=== PATIENT | female | born 1965 | race Caucasian/White ===

== ENCOUNTER 2017-07-08 16:23 | Emergency (ER) | payer MEDICARE, OTHER, MEDICAID ==
[~2017-07-08] VITALS: Ht 165.1 cm; Wt 40.5 kg
[~2017-07-08 16:23] MED LIST: ADV50100 IH; ALBU8.5H8 INH; ASPI-611 PO; ATOR40TA PO; FLUT16SP10; GABA300S PO; HYDR-565 PO; IBUP-1984 PO; LEVO175T2 PO; LORA0.5T PO; METO5TAB98 PO; MONT10TA24 PO; ONDA4TAB9 PO; PANT40SU2 PO
[2017-07-08 16:33] VITALS: BP 154/89
[2017-07-08] MEDS ORDERED: fentaNYL/PF 50MCG/1 ML 2ML syringe IM ONE (16:45)
[2017-07-08] MEDS ORDERED: ondansetron/PF 4mg/2ml inj IM ONE (17:00)
== END 2017-07-08 18:09 | disposition home or self-care (01) ==
LOC: ER 16:24
DX: K94.23 Gastrostomy malfunction (principal); E78.00 Pure hypercholesterolemia, unspecified; K21.9 Gastro-esophageal reflux disease without esophagitis; G89.29 Other chronic pain
CPT/HCPCS: 43760; 96372; 99284; B4088; J2405; J3010

== ENCOUNTER 2017-10-11 14:17 | Emergency (ER) | payer MEDICARE, MEDICAID ==
[~2017-10-11] VITALS: Ht 165.1 cm; Wt 41.8 kg
[2017-10-11 15:06] LABS: BASOPHILS % (AUTO) 0.1 % (0-1); EOSINOPHILS # (AUTO) 0.1 X10'3 (0-0.9); EOSINOPHILS % (AUTO) 0.7 % (0-6); HEMATOCRIT 41.3 % (35.0-45.0); HEMOGLOBIN 13.7 g/dl (12.0-16.0); LYMPHOCYTES # (AUTO) 0.5 X10'3 (1.1-4.8); LYMPHOCYTES % (AUTO) 5.1 % (21-51); MEAN CORPUSCULAR HEMOGLOBIN 28.5 PG (27.0-31.0); MEAN CORPUSCULAR HGB CONC 33.1 % (33.0-36.5); MEAN CORPUSCULAR VOLUME 85.9 FL (78-98); MEAN PLATELET VOLUME 8.4 FL (7.4-10.4); MONOCYTES # (AUTO) 0.4 X10'3 (0-0.9); MONOCYTES % (AUTO) 4.2 % (2-12); NEUTROPHILS # (AUTO) 8.4 X10'3 (1.8-7.7); NEUTROPHILS % (AUTO) 89.9 % (42-75); PLATELET COUNT 113 X10'3 (140-440); RED CELL DISTRIBUTION WIDTH 15.4 % (11.5-14.5); WHITE BLOOD COUNT 9.3 X10'3 (4.5-11.0)
[2017-10-11] MEDS ORDERED: ipratropium/albuterol 3ml nebule NEB ONE (15:10)
[2017-10-11 15:21] LABS: ALANINE AMINOTRANSFERASE 32 U/L (12-78); ALBUMIN 3.7 G/DL (3.4-5.0); ALBUMIN/GLOBULIN RATIO 0.8 (1.1-1.5); ALKALINE PHOSPHATASE 171 IU/L (46-116); ANION GAP 5 (8-16); BILIRUBIN,TOTAL 0.5 MG/DL (0.1-1.0); BLOOD UREA NITROGEN 13 MG/DL (7-18); BUN/CREATININE RATIO 21.7 (6.6-38.0); CALCIUM 9.7 MG/DL (8.5-10.1); CHLORIDE 98 MMOL/L (99-107); GLUCOSE 127 MG/DL (70-104); SODIUM 135 MMOL/L (135-145); TOTAL CARBON DIOXIDE 31.6 MMOL/L (24-32); TOTAL PROTEIN 8.5 G/DL (6.4-8.2); eGFR > 90 ML/MIN
[2017-10-11 15:31] LABS: ASPARTATE AMINO TRANSFERASE 59 U/L (10-37); POTASSIUM 4.8 MMOL/L (3.5-5.1)
[2017-10-11 15:38] LABS: ANISOCYTOSIS FEW; PLATELET ESTIMATE DECREASED; TOTAL CELLS COUNTED 100
[2017-10-11 15:51] LABS: D-DIMER 0.65 MG/L FEU (0-0.50)
[2017-10-11] MEDS ORDERED: iohexol 350MG/ML 100ml bottle IV ONE (15:56)
[2017-10-11] MEDS ORDERED: AZIT250T PO ×2 (17:13→17:19)
[2017-10-11] MEDS ORDERED: ALB0.5UD IH (17:13)
[2017-10-11] MEDS ORDERED: PRED5TAB PO ×2 (17:13→17:19)
[2017-10-11] MEDS ORDERED: ALBU8HFA PO (17:19)
[2017-10-11 18:03] VITALS: BP 157/83
== END 2017-10-11 18:05 | disposition home or self-care (01) ==
LOC: ER 14:17
DX: J20.9 Acute bronchitis, unspecified (principal); R06.02 Shortness of breath; R00.0 Tachycardia, unspecified; E78.00 Pure hypercholesterolemia, unspecified; K21.9 Gastro-esophageal reflux disease without esophagitis; G89.29 Other chronic pain; Z85.9 Personal history of malignant neoplasm, unspecified; Z88.8 Allergy status to other drugs, medicaments and biological substances; Z79.82 Long term (current) use of aspirin; Z79.899 Other long term (current) drug therapy; Z98.890 Other specified postprocedural states
CPT/HCPCS: 36415; 71046; 71275; 80053; 83880; 84439; 84443; 84484; 85025; 85379; 93005; 94640; 94760; 99285; J7030; Q9967

== ENCOUNTER 2018-01-25 12:19 | Emergency (ER) | payer MEDICARE, MEDICAID ==
[~2018-01-25] VITALS: Ht 165.1 cm; Wt 40.0 kg
[~2018-01-25 12:19] MED LIST changes: +HYDR-4353 PO; -HYDR-565 PO; +PRED5TAB PO
[2018-01-25] MEDS ORDERED: ondansetron 4mg rapidly disintigrating tab PO ONE (12:40)
[2018-01-25] MEDS ORDERED: HYDROmorphone 1 mg/ml syringe IM ONE (12:40)
[2018-01-25] MEDS ORDERED: HYDR-4353 PO (13:30)
[2018-01-25 14:18] VITALS: BP 146/87
== END 2018-01-25 14:19 | disposition home or self-care (01) ==
LOC: ER 12:20
DX: S82.391A Other fracture of lower end of right tibia, initial encounter for closed fracture (principal); E78.00 Pure hypercholesterolemia, unspecified; K21.9 Gastro-esophageal reflux disease without esophagitis; Z88.8 Allergy status to other drugs, medicaments and biological substances; Z79.82 Long term (current) use of aspirin; Z79.899 Other long term (current) drug therapy; V49.3XXA Car occupant (driver) (passenger) injured in unspecified nontraffic accident, initial encounter; Y93.89 Activity, other specified; Y92.488 Other paved roadways as the place of occurrence of the external cause; Y99.8 Other external cause status
CPT/HCPCS: 29505; 73610; 94640; 96372; 99283; J1170

== ENCOUNTER 2018-01-26 18:23 | Emergency (ER) | payer MEDICARE, MEDICAID ==
[~2018-01-26] VITALS: Ht 165.1 cm; Wt 40.0 kg
[2018-01-26 18:25] VITALS: BP 146/84
[2018-01-26] MEDS ORDERED: oxyCODONE IR 5mg (immed. release) tablet PO ONE (19:45)
== END 2018-01-26 20:08 | disposition home or self-care (01) ==
LOC: ER 18:24
DX: S82.301D Unspecified fracture of lower end of right tibia, subsequent encounter for closed fracture with routine healing (principal); M79.605 Pain in left leg; E78.00 Pure hypercholesterolemia, unspecified; K21.9 Gastro-esophageal reflux disease without esophagitis; G89.29 Other chronic pain; Z79.82 Long term (current) use of aspirin; Z88.8 Allergy status to other drugs, medicaments and biological substances; V48.6XXD Car passenger injured in noncollision transport accident in traffic accident, subsequent encounter
CPT/HCPCS: 99282

== ENCOUNTER 2019-12-12 03:05 | Inpatient (IN) | payer MEDICARE, MEDICAID ==
[~2019-12-12] VITALS: Ht 154.9 cm; Wt 57.0 kg
[~2019-12-12 03:05] MED LIST changes: -ADV50100 IH; -ALBU8.5H8 INH; -ASPI-611 PO; -ATOR40TA PO; +ATOR40TA7 PO; -FLUT16SP10; -GABA300S PO; +GABA600T13 PO; -HYDR-4353 PO; -IBUP-1984 PO; +LEVO125T PO; -LEVO175T2 PO; -LORA0.5T PO; +METO25TA6 PO; -METO5TAB98 PO; -MONT10TA24 PO; +NORT10CA81 PO; -ONDA4TAB9 PO; +OXYC10TA47 PO; +PANT-47 PO; -PANT40SU2 PO; -PRED5TAB PO; +TRAZ-251 PO
[2019-12-12] MEDS ORDERED: normal saline 1000ML IV soln IVB ONE (03:10)
[2019-12-12 03:47] LABS: BASOPHILS % (AUTO) 0.2 % (0-1); EOSINOPHILS % (AUTO) 0.1 % (0-6); HEMATOCRIT 48.2 % (35.0-45.0); HEMOGLOBIN 15.8 g/dl (12.0-16.0); LYMPHOCYTES # (AUTO) 0.3 X10'3 (1.1-4.8); LYMPHOCYTES % (AUTO) 2.6 % (21-51); MEAN CORPUSCULAR HEMOGLOBIN 30.2 PG (27.0-31.0); MEAN CORPUSCULAR HGB CONC 32.8 g/dL (33.0-36.5); MEAN CORPUSCULAR VOLUME 92.2 FL (78-98); MEAN PLATELET VOLUME 8.9 FL (7.4-10.4); MONOCYTES # (AUTO) 0.3 X10'3 (0-0.9); MONOCYTES % (AUTO) 2.5 % (2-12); NEUTROPHILS # (AUTO) 12.6 X10'3 (1.8-7.7); NEUTROPHILS % (AUTO) 94.6 % (42-75); PLATELET COUNT 259 X10'3 (140-440); RED BLOOD COUNT 5.23 X10'6 (4.20-5.60); RED CELL DISTRIBUTION WIDTH 14.9 % (11.5-14.5); WHITE BLOOD COUNT 13.3 X10'3 (4.5-11.0)
[2019-12-12 03:52] LABS: CLARITY,URINE SLIGHTLY CLOUDY (Clear); COLOR,URINE YELLOW (Yellow); GLUCOSE, URINE NEGATIVE (Neg); KETONES,URINE NEGATIVE (Neg); LEUKOCYTE ESTERASE ,URINE NEGATIVE (Neg); NITRITES, URINE NEGATIVE (Neg); OCCULT BLOOD,URINE NEGATIVE (Neg); PROTEIN,URINE 30 mg/dl (Neg); UROBILINOGEN,URINE 0.2 E.U/dL (0.2-1.0)
[2019-12-12 03:55] LABS: URINE AMPHETAMINE SCREEN NEGATIVE (Neg); URINE BARBITUATE SCREEN NEGATIVE (Neg); URINE BENZODIAZEPINES SCREEN NEGATIVE (Neg); URINE CANNABINOID SCREEN NEGATIVE (Neg); URINE COCAINE SCREEN NEGATIVE (Neg); URINE METHADONE SCREEN NEGATIVE (Neg); URINE OPIATE SCREEN POSITIVE (Neg); URINE PHENCYCLIDINE SCREEN NEGATIVE (Neg)
[2019-12-12 03:58] LABS: UA COLLECTION TYPE STRAIGHT CATH
[2019-12-12 04:01] LABS: RBC,URINE NONE SEEN /HPF (0-2); WBC,URINE 0-4 /HPF (0-4)
[2019-12-12 04:02] LABS: BACTERIA,URINE NONE SEEN /HPF (Neg); MUCUS STRANDS MODERATE /LPF (Neg); SQUAMOUS EPITHELIAL CELL,UR NONE SEEN /LPF (FEW)
[2019-12-12 04:04] LABS: AMORPHOUS PHOSPHATES 1+; TRANSITIONAL EPI CELLS,URINE FEW /HPF
[2019-12-12 04:25] LABS: ALANINE AMINOTRANSFERASE 56 U/L (12-78); ALBUMIN 2.8 G/DL (3.4-5.0); ALBUMIN/GLOBULIN RATIO 0.6 (1.1-1.5); ALKALINE PHOSPHATASE 146 IU/L (46-116); ANION GAP 1 (8-16); ASPARTATE AMINO TRANSFERASE 32 U/L (10-37); BILIRUBIN,TOTAL 0.4 MG/DL (0.1-1.0); BLOOD UREA NITROGEN 21 MG/DL (7-18); BUN/CREATININE RATIO 27.3 (6.6-38.0); CHLORIDE 100 MMOL/L (99-107); CREATININE 0.77 MG/DL (0.40-0.90); ETHANOL < 0.010 GM/DL (0.0-0.010); GLUCOSE 202 MG/DL (70-104); SODIUM 142 MMOL/L (135-145); TOTAL PROTEIN 7.5 G/DL (6.4-8.2); eGFR 78 ML/MIN
[2019-12-12 04:29] LABS: TOTAL CARBON DIOXIDE 41.2 MMOL/L (24-32)
[2019-12-12] MEDS ORDERED: potassium CL 10mEq/100ml bag 100 ML IV PRN ×2 (04:45)
[2019-12-12] MEDS ORDERED: acetaminophen 325mg tablet PO PRN ×2 (04:45)
[2019-12-12] MEDS ORDERED: magnesium hydroxide 30ml (MOM) UD suspension PO PRN (04:45)
[2019-12-12] MEDS ORDERED: ondansetron/PF 4mg/2ml inj IV PRN (04:45)
[2019-12-12] MEDS ORDERED: magnesium 4gm in 100ml NS 100 ML IV PRN (04:45)
[2019-12-12] MEDS ORDERED: mag hydrox/Alum hydrox/simeth 30ml oral suspension PO PRN (04:45)
[2019-12-12] MEDS ORDERED: potassium Cl 20 mEq SR tablet PO PRN ×2 (04:45)
[2019-12-12] MEDS ORDERED: ipratropium/albuterol 3ml nebule NEB PRN (04:45)
[2019-12-12] MEDS ORDERED: magnesium 2GM in 50ml NS 50 ML IV PRN (04:45)
--- NOTE | 2019-12-12 05:15 | NUR ---
Per lacey Rasmussen to give pt ice to wet mouth.
[2019-12-12 06:11] LABS: ABG BASE EXCESS 6.7 mmol/L (-2.0-2.0); ABG HCO3 33.7 mmol/L (22.0-26.0); ABG OXYGEN SATURATION 91.3 % (94-97); ABG PCO2 (T) 59.1 mmHg (32.0-45.0); ABG PO2 (T) 73.3 mmHg (75.0-100.0); FCOHb 0.8 % (0.0-3.9); FLOW 6 L/min; FMetHb 0.2 % (0.0-1.5); FO2Hb 90.4 % (94-97); PATIENT TEMPERATURE 37.3; TOTAL HEMOGLOBIN 14.1 G/dl (12.0-16.0)
[2019-12-12] MEDS: normal saline 1000ml 1,000 ML IV SCH ×2 (07:12→15:38)
[2019-12-12] MEDS: levoFLOXACIN-Levaquin 750MG/D5 150 ML IV SCH (07:57)
[2019-12-12] MEDS: K and/or MAG REPLACEMENT MC SCH ×2 (08:00→20:00)
[2019-12-12] MEDS ORDERED: BUPR1PAT23 TP (11:13)
[2019-12-12] MEDS ORDERED: FLUT16SP20 (11:13)
[2019-12-12] MEDS ORDERED: ALBU18HF2 IH (11:13)
--- NOTE | 2019-12-12 11:44 | NUR ---
amber reed [phone]
--- NOTE | 2019-12-12 11:46 | NUR ---
pt is unhappy being here waiting for a room upstairs, she was advised that a room could open up soon and all we could do is wait, reports that wants to go to [facility] instead, hospitalist and CRN were made aware.
--- NOTE | 2019-12-12 12:36 | NUR ---
SPOKE WITH SIG OTHER TIMUR WHO ADVISED HE WOULD LIKE PT TO STAY HER MEMORY HAS BEEN POOR THIS LAST WEEK. SPOKE WITH PT WHO STATES SHE HAS DECIDED TO STAY. DR SRINI PLATT.
--- NOTE | 2019-12-12 13:04 | NUR ---
DR. MILLIGAN CALLED BACK TO SAY HE WOULD SEE PT FOR ADMIT. SON CALLED AND IS SPEAKING WITH PT NOW.
--- NOTE | 2019-12-12 14:20 | NUR ---
PAGED DR. MILLIGAN "ER BED 3 REQUESTING PAIN MEDS OR WILL AMA" REPORTED BY NURSE
--- NOTE | 2019-12-12 14:20 | NUR ---
pt is requesting pain medication, is refusing the PO tylenol, she said that if she doesn't get meds she is leaving, dr abraham was advised by a page
[2019-12-12] MEDS ORDERED: gabapentin 300mg capsule PO PRN (14:45)
[2019-12-12] MEDS ORDERED: ALBUTEROL INHALER 1 PUFF/90 MCG INHALER IH PRN (14:45)
[2019-12-12] MEDS ORDERED: fluticasone nasal spray 16GM bottle NS PRN (14:45)
[2019-12-12] MEDS ORDERED: atorvastatin 20mg tablet PO SCH (14:51)
[2019-12-12] MEDS: oxyCODONE IR 5mg (immed. release) tablet PO PRN (18:00)
[2019-12-12] MEDS ORDERED: metoprolol tartrate 25mg tablet PO SCH (20:00)
[2019-12-12] MEDS ORDERED: nortriptyline 10mg capsule PO SCH (20:00)
[2019-12-12] MEDS ORDERED: enoxaparin 40mg/0.4ml syringe SQ SCH (20:00)
[2019-12-12] MEDS ORDERED: lactobacillus rhamnosus 10,000 MMU CELLS/CAPSULE PO SCH (20:00)
[2019-12-12] MEDS ORDERED: traZODone 50mg tablet PO SCH (21:00)
[2019-12-13] MEDS: oxyCODONE IR 5mg (immed. release) tablet PO PRN ×2 (00:14→06:01)
[2019-12-13] MEDS: normal saline 1000ml 1,000 ML IV SCH ×2 (00:45→06:01)
[2019-12-13 03:00] VITALS: BP 134/74
[2019-12-13 05:51] LABS: BASOPHILS % (AUTO) 0.3 % (0-1); EOSINOPHILS % (AUTO) 0.1 % (0-6); HEMATOCRIT 41.3 % (35.0-45.0); HEMOGLOBIN 13.7 g/dl (12.0-16.0); LYMPHOCYTES # (AUTO) 0.7 X10'3 (1.1-4.8); LYMPHOCYTES % (AUTO) 9.4 % (21-51); MEAN CORPUSCULAR HEMOGLOBIN 30.2 PG (27.0-31.0); MEAN CORPUSCULAR HGB CONC 33.2 g/dL (33.0-36.5); MEAN CORPUSCULAR VOLUME 91.1 FL (78-98); MONOCYTES # (AUTO) 0.4 X10'3 (0-0.9); MONOCYTES % (AUTO) 5.9 % (2-12); NEUTROPHILS # (AUTO) 6.2 X10'3 (1.8-7.7); NEUTROPHILS % (AUTO) 84.3 % (42-75); PLATELET COUNT 160 X10'3 (140-440); RED BLOOD COUNT 4.53 X10'6 (4.20-5.60); RED CELL DISTRIBUTION WIDTH 14.3 % (11.5-14.5); WHITE BLOOD COUNT 7.4 X10'3 (4.5-11.0)
[2019-12-13 05:58] LABS: ALANINE AMINOTRANSFERASE 37 U/L (12-78); ALBUMIN 2.6 G/DL (3.4-5.0); ALBUMIN/GLOBULIN RATIO 0.6 (1.1-1.5); ALKALINE PHOSPHATASE 109 IU/L (46-116); ANION GAP 5 (8-16); ASPARTATE AMINO TRANSFERASE 29 U/L (10-37); BILIRUBIN,TOTAL 0.4 MG/DL (0.1-1.0); BLOOD UREA NITROGEN 17 MG/DL (7-18); BUN/CREATININE RATIO 29.8 (6.6-38.0); CALCIUM 8.9 MG/DL (8.5-10.1); CHLORIDE 102 MMOL/L (99-107); CREATININE 0.57 MG/DL (0.40-0.90); GLUCOSE 83 MG/DL (70-104); MAGNESIUM 1.9 MG/DL (1.5-2.4); POTASSIUM 3.5 MMOL/L (3.5-5.1); SODIUM 141 MMOL/L (135-145); TOTAL CARBON DIOXIDE 33.6 MMOL/L (24-32); TOTAL PROTEIN 6.8 G/DL (6.4-8.2); eGFR > 90 ML/MIN
--- NOTE | 2019-12-13 06:20 | NUR ---
Patient in room PCU 3025. I have received report from BAKARI Dozier and had the opportunity to ask questions and assume patient care.
[2019-12-13 07:08] VITALS: BP 134/80
[2019-12-13] MEDS ORDERED: atorvastatin 20mg tablet PEG SCH (07:16)
[2019-12-13] MEDS ORDERED: acetaminophen 325mg/10.15ml oral unit dose solution PEG PRN ×2 (07:16)
[2019-12-13] MEDS ORDERED: mag hydrox/Alum hydrox/simeth 30ml oral suspension PEG PRN (07:17)
[2019-12-13] MEDS ORDERED: lactobacillus rhamnosus 10,000 MMU CELLS/CAPSULE PEG SCH (07:17)
[2019-12-13] MEDS ORDERED: magnesium hydroxide 30ml (MOM) UD suspension PEG PRN (07:17)
[2019-12-13] MEDS ORDERED: metoprolol tartrate 25mg tablet PEG SCH (07:18)
[2019-12-13] MEDS ORDERED: traZODone 50mg tablet PEG SCH (07:18)
[2019-12-13] MEDS ORDERED: nortriptyline 10mg capsule PEG SCH (07:18)
[2019-12-13] MEDS ORDERED: POTASSIUM BICARB 20meq eff tab 20 MEQ TABLET.EFF PEG PRN ×2 (07:19)
[2019-12-13] MEDS ORDERED: oxyCODONE IR 5mg (immed. release) tablet PEG PRN (07:41)
[2019-12-13] MEDS ORDERED: gabapentin 300mg capsule PEG PRN (07:42)
[2019-12-13] MEDS ORDERED: levoTHYROXINE 125mcg tablet PEG SCH (08:00)
[2019-12-13] MEDS: K and/or MAG REPLACEMENT MC SCH (08:00)
[2019-12-13] MEDS: levoFLOXACIN-Levaquin 750MG/D5 150 ML IV SCH (08:00)
[2019-12-13] MEDS ORDERED: pantoprazole 40mg Tablet.DR PO SCH (08:00)
[2019-12-13 09:12] VITALS: BP_SYST 141
[2019-12-13] MEDS ORDERED: NORT10CA81 PO (12:20)
[2019-12-13] MEDS ORDERED: GABA600T13 PO (12:20)
--- NOTE | 2019-12-13 14:50 | NUR ---
Patient discharged from hospital at 1420. Patient left hospital with home medications which were counted with pharmacy service associate. Patient also left the hospital with her purse which included her wallet, tube feeding supplies (including syringes), and a notepad with a pen. Patient discharge instructions given. These instructions included telling the patient to follow up with her PCP in 1 week, telling the patient to follow up with her pain medication provider to have her medications tapered down further, and to call 911 or to come to the ER if her condition worsen. The patient was given verbal information as well as handout information regarding her metabolic encephalopathy and information regarding improper use of opioid medications. The patient was given a list of changes to her medications as well as a specific time as to when she should take her next dose of her prescribed medications. The patient was given and told about possible side effects of her medications and when to call if any of these side effects were experienced. The patient was asked if she had any questions to which she replied "no."
--- NOTE | 2019-12-13 14:54 | NUR ---
Patient discharge instructions discussed with patient by SN Alena and BAKARI Flaherty bedside to monitor the information being discussed. Patient stated an understanding of the instructions and warning signs for medication over use. Patient was also educated by SN Alena the changes in her medications including the dosage changes and the stopped medications. Patient stated an understanding of this and also stated that she planned to follow up with her pain specialist to take another look at her current medication list and situation. Tele monitor removed and returned to the tele chambers. PIV removed with cannula intact. Patient discharged via boyfriend and taken from unit via wheelchair and x1 staff. Patient alert, oriented and in no apparent distress at time of discharge.
[2019-12-17] MEDS ORDERED: NORT10CA5 PO (17:40)
[2019-12-17] MEDS ORDERED: DIPH25CA83 PO (17:40)
[2019-12-17] MEDS ORDERED: GABA600T13 PO (17:40)
== END 2019-12-13 14:30 | disposition home health service (06) | DRG 92 ==
LOC: ER 03:05 → ED HOLD 04:42 → PCU 3S 19:50
PROVIDERS: ADMIT Family Medicine; ATTEND Family Medicine
DX: G92 Toxic encephalopathy (principal); E87.3 Alkalosis; R64 Cachexia; E78.00 Pure hypercholesterolemia, unspecified; E03.9 Hypothyroidism, unspecified; G89.29 Other chronic pain; E78.5 Hyperlipidemia, unspecified; T40.605A Adverse effect of unspecified narcotics, initial encounter; T42.4X5A Adverse effect of benzodiazepines, initial encounter; K21.9 Gastro-esophageal reflux disease without esophagitis; D72.829 Elevated white blood cell count, unspecified; R00.0 Tachycardia, unspecified; Z83.3 Family history of diabetes mellitus; Z85.810 Personal history of malignant neoplasm of tongue; Z92.21 Personal history of antineoplastic chemotherapy; Z92.3 Personal history of irradiation; Z68.23 Body mass index [BMI] 23.0-23.9, adult; Z88.8 Allergy status to other drugs, medicaments and biological substances; Z79.899 Other long term (current) drug therapy; Z82.49 Family history of ischemic heart disease and other diseases of the circulatory system; Y92.89 Other specified places as the place of occurrence of the external cause
CPT/HCPCS: 36415; 36600; 70450; 71045; 80053; 80305; 80320; 81001; 82803; 82948; 83605; 83735; 84145; 85018; 85025; 87040; 93005; 94640; 94760; 96365; 99285; G0378; J1650; J1956; J7030